=== PATIENT | female | born 1985 | race Caucasian/White ===

== ENCOUNTER 2021-10-16 07:01 | Day surgery (SDC) | payer OTHER ==
[~2021-10-16] VITALS: Ht 180.3 cm; Wt 103.0 kg
--- NOTE | ~2021-10-16 | OR ---
[place] [id number] [place], [place] [address] Draft DATE OF OPERATION: 10/16/2021 SURGEON: Vinita Moreno DO PREOPERATIVE DIAGNOSES: 1. Dysmenorrhea. 2. Fibroid uterus. 3. Anxiety with pelvic exam. 4. Pelvic pain. POSTOPERATIVE DIAGNOSES: 1. Dysmenorrhea. 2. Fibroid uterus. 3. Anxiety with pelvic exam. 4. Pelvic pain. 5. Bilateral pelvic varicosities. PROCEDURES PERFORMED: 1. Exam under anesthesia with Pap smear. 2. Hysteroscopy, dilation and curettage. 3. Diagnostic laparoscopy. FIXTURE FABRICATOR REPAIRER: Yadi Toscano D.O. ANESTHESIA: General. ESTIMATED BLOOD LOSS: 20 mL. SPECIMEN: Endometrial curettings and polyp. FINDINGS: Normal external genitalia with normal clitoris, urethral meatus, bilateral Greenbush's and Bartholin's. Normal cervix, however, significantly deviated to the patient's left. Enlarged irregular contoured uterus on laparoscopy demonstrated multi fibroids. Normal tubes and ovaries bilaterally. Bilateral adnexal/pelvic varicosities consistent with pelvic congestion. No evidence of endometriosis. PATIENT NAME: KAVIN SANTIAGO OPERATIVE REPORT DATE OF : 85 REPORT #: [id number] PHYSICIAN: VINITA MORENO DO PCP: BISHOP RABAGO PA-C REPORT IS CONFIDENTIAL AND NOT TO BE RELEASED WITHOUT AUTHORIZATION [facility] [address] [place], [place] [address] Draft COMPLICATIONS: None. INDICATIONS: Mrs. Santiago is a pleasant 36-year-old, G2, P2, female with longstanding history of dysmenorrhea and abnormal bleeding. Ultrasound was performed, demonstrated an enlarged multi fibroid uterus. The patient is unable to tolerate pelvic exam in the office due to severe anxiety and discomfort. The patient was scheduled for hysteroscopy, D and C, exam under anesthesia with Pap smear and diagnostic laparoscopy. Risks, benefits, and alternatives were discussed in detail with the patient. The patient understands and wished to proceed with the procedure. DESCRIPTION OF PROCEDURE: The patient was taken to the operating room, where a time-out was performed to confirm correct patient and correct procedure. General anesthesia was adequately established. The patient was prepped and draped in dorsal lithotomy position with feet in Yellofin stirrups. ICPs were on and running and no preoperative antibiotics or heparin was indicated. A weighted speculum was placed in the vagina and Pap smear was performed. The anterior lip of the cervix was grasped with Allis clamp. The cervix was serially dilated using Hegar dilators. An operative hysteroscope was placed in the cervical os and advanced under direct visualization into the uterine cavity. Large lower segment polyp or fibroid anteriorly was noted and the remainder of the cavity appeared normal. Normal tubal ostia bilaterally. A MyoSure Lite device was selected and anterior mass was excised in total and circumferential curettage was performed. The hysteroscope was removed and a Hulka clamp was placed without difficulty. Surgeon's gloves were changed. Attention was turned to the base of the umbilicus. A 2 cm infraumbilical was infiltrated with 0.25% Marcaine with epinephrine and a curvilinear incision was made using a surgical scalpel. The fascia was grasped with hemostats and entered sharply using Metzenbaum scissors. Stay suture of 0-Vicryl was placed in the anterior and inferior edges of the fascial incision. The peritoneum was then entered bluntly and an S retractor was used to elevate the anterior abdominal wall. Stef operative port was then placed without difficulty. Pneumoperitoneum was easily established and survey of the abdomen and pelvis was performed. A 5 mm assistant corporate controller port was placed under direct visualization in the right lower quadrant without difficulty. Normal appendix. Normal bilateral tubes and ovaries were appreciated. The uterus was enlarged and irregular in contour consistent with multiple fibroids. Detailed evaluation of the peritoneal service demonstrates no endometriosis; however, significant bilateral varicosities noted. Pneumoperitoneum was reduced. Trocars were removed and infraumbilical fascial incision was repaired using 0-Vicryl in a running nonlocked manner. Skin was reapproximated using 4-0 Monocryl in subcuticular manner with excellent hemostasis and cosmesis. The Hulka and Kilgore catheter were removed and the patient was taken to the PATIENT NAME: KAVIN SANTIAGO OPERATIVE REPORT DATE OF : [birth year] REPORT #: [id number] PHYSICIAN: VINITA MORENO DO PCP: BISHOP RABAGO PA-C REPORT IS CONFIDENTIAL AND NOT TO BE RELEASED WITHOUT AUTHORIZATION [facility] [address], [place] [address] Draft PACU in good and stable condition. Sponge, needle, and instrument count was correct x2 at the end of the procedure. Dr. Toscano was present and participated in all portions of the procedure. DO ZAIDA Ruffin/EILEEN /[id number] Copies: ~ PATIENT NAME: PAMELAKAVIN OPERATIVE REPORT DATE OF : [birth year] REPORT #: [id number] PHYSICIAN: VINITA MORENO DO PCP: BISHOP RABAGO PA-C REPORT IS CONFIDENTIAL AND NOT TO BE RELEASED WITHOUT AUTHORIZATION
[~2021-10-16 07:01] MED LIST: HYDRALAZINE HCL25 MG PO; PRISTIQ ER25 MG PO
--- NOTE | 2021-10-16 08:39 | NUR ---
PT ALERT, ORIENTED AND ON HER PHONE. PT SUPPORTED BY HER YARON, WHO WILL REMAIN FOR DC. ALL QUESTIONS ASKED ANSWERED. PT DECLINED PRAYER, GAVE BLESSING WILL FOLLOW
--- NOTE | 2021-10-16 09:00 | NUR ---
0800 PATIENT UPDATED ON ESTIMATED SURGERY TIME WITH DELAY. PATIENT VERABLIZED UNDERSTANDING. PROVIDED WARM BLANKETS. NO OTHER NEEDS AT THIS TIME. 0900 PATIENT RESTING BACK IN BED, APPEARS CALM. NO OTHER NEEDS AT THIS TIME.
--- NOTE | 2021-10-16 13:20 | NUR ---
10/16/21 1320 Sheets,Obdulia 1315 PT ARRIVED TO PACU ON 6L VIA MASK, VSS. PT MOVING IN BED AND EASILY FALLS BACK TO SLEEP. 1319 O2 REMOVED AND PT REPORTS SHE WANTS WATER, EDUCATION GIVEN.
--- NOTE | 2021-10-16 14:20 | NUR ---
1340 PATIENT BACK TO ROOM FROM PACU, BEDSIDE REPORT FROM ZAKIA ALEXANDRA. PATIENT AWAKE, REPORTS PAIN 3/10 ON PAIN SCALE. PROVIDED SNACK AND WATER, PATIENT TOLERATED WELL. BAND-AIDS TO LAP SITES LOWER ABDOMEN SMALL AMOUNT OF RED DRAINAGE SHADOWING. 1350 ADMINISTERED PO PAIN MEDICAITON PER APR. PATIENT RESTING BACK. [id number] PATIENT PICTURES AT BEDSIDE FOR TO DISCUSS WITH PATIENT. IN ROOM. CALL LIGHT WITHIN REACH. NO OTHER NEEDS AT THIS TIME.
--- NOTE | 2021-10-16 14:50 | NUR ---
1440 PATIENT ALERT AND ORIENTED. BREATHING EQUAL AND UNLABORED. OXYGEN SATURATIONS ABOVE 95% ON ROOM AIR. IVF INFUSING. PATIENT STATES PAIN IS IMPROVING. WATER GIVEN TO PATIENT. NO QUESTIONS AT THIS TIME. CALL LIGHT WITHIN REACH NO FUTHER NEEDS.
--- NOTE | 2021-10-16 15:56 | NUR ---
PROVIDED PATIENT WITH DISCHARGE INSTRUCTION. ANSWERED QUESTIONS AND CONCERNS. DR. CHILD INTO ROOM TO DISCUSS PICTURES AT BEDSIDE.
--- NOTE | 2021-10-18 19:45 | PATH ---
[facility] [address] [facility] [place], [place] [address] Signed SPECIMEN(S): A EMC AND ENDOMETRIAL POLYPS SPECIMEN SOURCE: A. EMC AND ENDOMETRIAL POLYPS CLINICAL HISTORY: Dysmenorrhea, abnormal uterine bleeding, pelvic and perineal pain. FINAL PATHOLOGIC DIAGNOSIS: Endometrium, curettage: - Abundant non-polypoid endometrium in secretory phase, consistent with day 22-24 of a 28-day cycle. - Negative for hyperplasia, atypia, and malignancy. COMMENT: There is no definite endometrial polyp identified. The endometrium has marked stromal pseudodecidual change, which is resulting in protruding areas on the endometrial surface. SDL:mfr:C2NR MICROSCOPIC EXAMINATION: Histologic sections of all submitted blocks are examined by light microscopy. These findings, together with the gross examination, support the pathologic diagnosis. GROSS DESCRIPTION: The specimen, labeled "Karley, B," and designated on the requisition "EMC and endometrial polyp," is received in formalin and consists of a 4.2 x 2.0 x 0.6 cm aggregate of red-pink soft tissue. The specimen is entirely submitted in cassettes (A1-A3). FB (under the direct supervision of a pathologist) The Gross Description was prepared using a voice recognition system. The report was reviewed for accuracy; however, sound-alike word errors, addition and/or deletions may occur. If there is any question about this report, please contact Client Services. PERFORMING LABORATORY: The technical component was performed by [facility], [address] [place] [id number] (CLIA# [id number]). Professional interpretation was performed by [facility], [address] [place] [id number] (CLIA#: [id number]). PATIENT NAME: KAVIN SANTIAGO PATHOLOGY DATE OF : 85 REPORT #: [id number] PHYSICIAN: FATOU GONSALEZ PCP: BISHOP RABAGO PA-C REPORT IS CONFIDENTIAL AND NOT TO BE RELEASED WITHOUT AUTHORIZATION [address] [place] [address] Signed Diagnostician: Julia Wilder MD Pathologist Electronically Signed 10/18/2021 Copies: ~ PATIENT NAME: KAVIN SANTIAGO PATHOLOGY DATE OF : [birth year] REPORT #: [id number] PHYSICIAN: FATOU GONSALEZ PCP: BISHOP RABAGO PA-C REPORT IS CONFIDENTIAL AND NOT TO BE RELEASED WITHOUT AUTHORIZATION
== END 2021-10-16 15:45 | disposition home or self-care (01) ==
LOC: DS 07:01 → OPS 07:01 → DS 09:30 → OPS 10:50
PROVIDERS: ATTEND Obstetrics & Gynecology
PROC: 0UB98ZX Excision of Uterus, Via Natural or Artificial Opening Endoscopic, Diagnostic (ICD-10-PCS; principal; 2021-10-16 10:50)
PROC: 0UDB8ZX Extraction of Endometrium, Via Natural or Artificial Opening Endoscopic, Diagnostic (ICD-10-PCS; 2021-10-16 10:50)
PROC: 0UJD4ZZ Inspection of Uterus and Cervix, Percutaneous Endoscopic Approach (ICD-10-PCS; 2021-10-16 10:50)
DX: D25.1 Intramural leiomyoma of uterus (principal); N94.6 Dysmenorrhea, unspecified; R19.8 Other specified symptoms and signs involving the digestive system and abdomen; F41.9 Anxiety disorder, unspecified; Z87.891 Personal history of nicotine dependence; Z88.0 Allergy status to penicillin; G89.29 Other chronic pain
CPT/HCPCS: 00790; J0330; J1100; J1170; J1885; J2250; J2405; J2704; J2765; J3010; J7121